=== PATIENT | male | born 1940 | race Caucasian/White ===

== ENCOUNTER 2016-03-20 05:20 | Day surgery (SDC) | payer OTHER ==
[~2016-03-20] VITALS: Ht 177.8 cm; Wt 74.4 kg
--- NOTE | ~2016-03-20 | S ---
[facility] [place] [address] SURGICAL PATH RPT PROCEDURE Name: MATTY CONNELLY Room #: DEP [facility] [place] M.R.#: [id number] Admission: 03/20/16 Date of : 42 Discharge: 03/20/16 Report #: [id number] Path Case #: [id number] PATHOLOGY REPORT COLLECTION DATE: 03/20/2016 RECEIVED DATE: 03/20/2016 SUBMITTING PHYS: Dr. Rivera Fairchild OTHER PHYS: Dr. Oleg Hammer SPECIMEN(S) RECEIVED: A.Sebaceous cyst - posterior neck * * * * * * * * * * * * FINAL DIAGNOSIS: Sebaceous cyst posterior neck, excision: - Ruptured mature keratinous cyst. (IUV:mgr; d/t: 03/21/16) PATHOLOGIST: Tanya Pemberton M.D. REPORT ELECTRONICALLY SIGNED BY: Tanya Pemberton M.D. DATE/TIME: 03/21/2016 16:50 * * * * * * * * * * * * GROSS PATHOLOGY: The specimen is received in formalin labeled "Matty Connelly, sebaceous cyst, long suture lateral, short suture superior," and additionally labeled on the requisition as, "posterior neck". Received is an unoriented excision of skin measuring 3.5 x 2.0 x 1.4 cm in greatest dimensions with a short suture placed at one tip designating the superior margin, which will further be designated as the 12:00 margin, and a long suture placed at one tip designating this as the lateral margin, which will further be designated as the 3:00 margin. The surgical margins are inked as follows: 12 to 3:00-blue, 3 to 9:00-black and 9 to 12:00-yellow. Sectioning reveals a unilocular cystic structure measuring 1.0 cm filled with blood-tinged mucoid material admixed with white-ortiz friable material. The specimen is submitted representatively in cassette A1. (CAA; 03/20/2016) CLINICAL HISTORY: Sebaceous cyst of skin of posterior neck with remote and abscess INITIAL CPT CODE(S): A; 11976 Professional services performed by [facility] at [address] [address] SURGICAL PATH RPT PROCEDURE Name: MATTY CONNELLY Room #: DEP [facility] [place] Justin#: [id number] Admission: 03/20/16 Date of : 42 Discharge: 03/20/16 Report #: [id number] Path Case #: [id number] , [place] [address] Technical services performed by [facility] at [address] [place] [address], [facility] [address] [address]. [facility] [address] PHONE: [phone] DIRECTOR: Cortez Eisenberg M.D. * * * END OF REPORT * * *
--- NOTE | ~2016-03-20 | O ---
[facility] [place] [address] OPERATIVE REPORT Name: MAX VALENCIA Room #: DEP [facility]..#: [id number] Admission: 03/20/16 Attend Phys: Rivera Fairchild MD, F Discharge: 03/20/16 Date of : 42 Report #: [id number] THIS REPORT FOR: //name// CC: Oleg Fairchild DATE OF SERVICE: 03/20/2016 PREOPERATIVE DIAGNOSIS: Sebaceous cyst 2.5 cm with recent and remote cellulitis and abscess formation. POSTOPERATIVE DIAGNOSIS: Sebaceous cyst 2.5 cm with recent and remote cellulitis and abscess formation. OPERATIVE PROCEDURE: Excision of 2.5 x 3 cm x 1 cm sebaceous cyst skin of posterior neck. SURGEON: Rivera Fairchild MD STUDENT ADVISOR: Oleg Farias MS3 INDICATIONS: A 75-year-old male who presented approximately one month ago with a large sebaceous cyst that had cellulitis and abscess formation, which required incision and drainage in the office. He was continued on antibiotic therapy for 2 weeks. He now has complete resolution of the cyst and it had resolved to a small 2.5 cm diameter lesion on the skin of the posterior side of the right aspect of the neck. OPERATIVE PROCEDURE: The patient had thorough discussion of the procedure, benefits and risks. He gave informed consent to proceed. He was given preoperative IV antibiotics of Ancef 1 g IV. He was brought to the operating room suite and had satisfactory induction of general endotracheal anesthesia. He was then positioned in a left lateral decubitus position. Sterile prep and paint of the entire posterior neck region was performed with DuraPrep solution. 0.5% plain Naropin was also infiltrated circumferentially around the lesion. Marking of the lesion had been prepared. After draping was complete, an appropriate timeout was performed. Excision of the 2.5 x 3 cm in width x 1 cm thickness lesion was performed. Elliptical excision was performed. The entire cystic structure was excised. The lesion was marked with a long suture laterally, a short suture superiorly. All was submitted for histologic evaluation. Undermining of the superior and inferior skin and subcutaneous flaps was performed with electrocautery and sharp dissection. Hemostasis was completed. The deep subcutaneous tissue was then approximated with interrupted 3-0 Vicryl sutures. Skin margins were then approximated with running subcuticular 4-0 Monocryl. Steri-Strips were applied. Neosporin ointment was applied. A sterile dressing was applied. Estimated blood loss was less than [address] [address] OPERATIVE REPORT Name: MAX VALENCIA Room #: DEP [facility]#: [id number] Admission: 03/20/16 Attend Phys: Rivera Fairchild MD, F Discharge: 03/20/16 Date of : 42 Report #: [id number]. The patient tolerated the procedure well and he returned to recovery room in stable and satisfactory condition. He will return to the office in approximately 2 weeks for followup evaluation and discussion of pathology results. He was discharged home on [place] 5/325 mg tablets #15, one q. 4-6 hours p.r.n. pain. <ELECTRONICALLY SIGNED> By: Rivera Fairchild MD, FACS 03/21/16 1445 1755 1817 Rivera Fairchild MD, FACS /nt
--- NOTE | ~2016-03-20 | EKG ---
[address] [address] ELECTROCARDIOGRAM REPORT Name: MAX VALENCIA Room #: [address] [place] [address]#: [id number] Admission: 03/20/16 Attend Phys: Rivera Fairchild MD, F Discharge: Date of : 42 Report #: [id number] THIS REPORT FOR: //name// [facility] Test Date: 2016-03-20 Test Time: 08:53:35 Pat Name: MAX VALENCIA Department: Room: 150 Gender: M Dough Catcher: LUKE : 1940 Requested By: Rivera Fairchild Order Number: [id number] MD: Oz Zayas Measurements Intervals [place] Rate: 58 P: 11 CA: 148 QRS: 18 QRSD: 96 T: 44 QT: 412 QTc: 405 Interpretive Statements Sinus bradycardia Otherwise no significant abnormality No previous ECG available for comparison Electronically Signed On 03-20-2016 9:01:57 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
[~2016-03-20 05:20] MED LIST: ASPIR 8181 MG PO; CENTRUM SILVER1 EAC2 PO; LIPITOR 20 MG T20 M1 PO; METOPROLOL SUCC50 MG PO
[2016-03-20 08:51] LABS: HEMATOCRIT 40.2 % (42.0-52.0); HEMOGLOBIN 13.2 gm/dL (14.0-18.0)
[2016-03-20 09:30] VITALS: BP 151/83
[2016-03-20 13:00] VITALS: BP 151/83
== END 2016-03-20 13:30 | disposition home or self-care (01) ==
LOC: TBA 05:20 → OR 05:20
PROVIDERS: Surgery
DX: L72.3 Sebaceous cyst (principal); L02.01 Cutaneous abscess of face; I10 Essential (primary) hypertension; E78.00 Pure hypercholesterolemia, unspecified; Z85.46 Personal history of malignant neoplasm of prostate; Z87.891 Personal history of nicotine dependence; Z98.890 Other specified postprocedural states
CPT/HCPCS: 50010; 50101; 50386; 50403; 56526; 62110; 62900; 70005